=== PATIENT | male | born 1980 | race Caucasian/White ===

== ENCOUNTER 2019-03-14 19:07 | Inpatient (IN) ==
[2019-03-14 19:46] LABS: Bilirubin,Urine Negative (Negative); Blood,Urine Negative (Negative); Clarity,Urine Clear (Clear); Color,Urine Yellow (Yellow); Glucose,Urine (UA) Normal (Normal); Ketones,Urine Negative (Negative); Leukocyte Esterase,Urine Negative (Negative); Nitrite,Urine Negative (Negative); Protein,Urine Negative (Neg-Trace); Specific Gravity,Urine 1.013 (1.010-1.025); Urobilinogen,Urine Normal (Normal)
[2019-03-14 19:46] LABS: Basophils % 0.8 %; Eosinophils # 0.1 K/mcL (0.0-0.6); Eosinophils % 2.3 %; Hematocrit 44.6 % (37.5-50.1); Hemoglobin 15.4 g/dL (12.9-16.9); Immature Granulocytes % 0.6 % (0-4); Lymphocytes # 2.4 K/mcL (0.6-4.6); Lymphocytes % 47.2 %; Mean Corpuscular HGB Conc 34.5 g/dL (31.6-35.5); Mean Corpuscular Hemoglobin 29.1 pg (28.0-33.3); Mean Corpuscular Volume 84.3 fL (83.0-100.0); Mean Platelet Volume 10.4 fL (9.4-12.4); Monocytes # 0.4 K/mcL (0.0-1.3); Monocytes % 7.2 %; Neutrophils # 2.2 K/mcL (1.6-8.9); Platelet Count 241 K/mcL (140-400); Red Blood Count 5.29 M/mcL (4.19-5.50); Red Cell Distribution Width 12.2 % (11.5-14.5); Segmented Neutrophils % 41.9 %; White Blood Count 5.1 K/mcL (4.3-11.1)
[2019-03-14 19:57] LABS: Amphetamine Screen,Urine Negative ng/mL (Cutoff=1000); Barbiturate Screen,Urine Negative ng/mL (Cutoff=200); Benzodiazepines Screen,Urine Negative ng/mL (Cutoff=200); Cannabinoid Screen,Urine Positive ng/mL (Cutoff = 50); Cocaine Screen,Urine Negative ng/mL (Cutoff= 300); Opiate Screen,Urine Negative ng/mL (Cutoff=300); Phencyclidine Screen,Urine Negative ng/mL (Cutoff=25)
[2019-03-14 20:09] LABS: Acetaminophen < 10 mcg/mL (10-20); Alanine Aminotransferase 41 Units/L (7-52); Albumin 4.8 g/dL (3.5-5.7); Albumin/Globulin Ratio 1.9 (1.1-2.2); Alkaline Phosphatase 61 Units/L (34-104); Aspartate Amino Transferase 27 Units/L (13-39); BUN/Creatinine Ratio 12 (6-26); Bilirubin,Direct 0.1 mg/dL (0.0-0.2); Bilirubin,Indirect 0.2 mg/dL (0.0-1.2); Bilirubin,Total 0.3 mg/dL (0.3-1.0); Blood Urea Nitrogen 12 mg/dL (6-20); Calcium 9.4 mg/dL (8.6-10.3); Carbon Dioxide 23 mEq/L (23-29); Chloride 105 mEq/L (98-107); Ethanol 215 mg/dL (Less than 10); Globulin 2.5 g/dL (2.4-3.5); Glucose 117 mg/dL (70-105); Lipase 82 Units/L (11-82); Osmolality,Calculated 293 (280-300); Potassium 4.2 mEq/L (3.5-5.1); Salicylate < 2.5 mg/dL (15.0-30.0); Sodium 141 mEq/L (136-145); Total Protein 7.3 g/dL (6.4-8.9); eGFR For African Americans > 60 (> 60); eGFR For Non-African Americans > 60 (> 60)
[2019-03-15] MEDS ORDERED: Mag Hydrox/Al Hydrox/Simeth 30 ML UDC PO STA (01:22)
[2019-03-15] MEDS ORDERED: Acetaminophen 325 MG TABLET PO PRN (10:24)
[2019-03-15] MEDS ORDERED: Haloperidol Lactate 5 MG/ML VIAL IM PRN (10:24)
[2019-03-15] MEDS ORDERED: hydrOXYzine pamoate 25 MG CAPSULE PO PRN (10:24)
[2019-03-15] MEDS ORDERED: Mag Hydrox/Al Hydrox/Simeth 30 ML UDC PO PRN (10:24)
[2019-03-15] MEDS ORDERED: *HR* LORazepam 2 MG/ML VIAL IM PRN (10:24)
[2019-03-15] MEDS ORDERED: *HR* LORazepam 1 MG TABLET PO PRN (10:24)
[2019-03-15] MEDS ORDERED: MOM Conc 10 ML UD.LIQ PO PRN (10:24)
[2019-03-15] MEDS ORDERED: traZODone 50 MG TABLET PO PRN (10:24)
[2019-03-16] MEDS: Metoprolol XL (24 HR) Succ 50 MG TAB.ER.24H PO SCH (11:19)
[2019-03-16] MEDS: Divalproex (12 HR) 500 MG TABLET PO SCH (11:19)
[2019-03-16] MEDS ORDERED: (Paliperidone Palmitate [Invega Sustenna] 234 MG) IM SCH (16:00)
[2019-03-16] MEDS ORDERED: Melatonin 3 MG TABLET PO SCH (21:00)
[2019-03-16] MEDS ORDERED: Divalproex (12 HR) 500 MG TABLET PO SCH (21:00)
[2019-03-17] MEDS: Metoprolol XL (24 HR) Succ 50 MG TAB.ER.24H PO SCH (08:51)
[2019-03-17] MEDS: Divalproex (12 HR) 500 MG TABLET PO SCH (08:51)
[2019-03-17 10:16] VITALS: BP 123/85
== END 2019-03-17 11:50 | disposition home or self-care (01) | DRG 753 ==
LOC: EMEROOARM 19:07 → 1ANU 03-15 10:23
PROVIDERS: ADMIT Psychiatry & Neurology Psychiatry; ATTEND Psychiatry & Neurology Psychiatry